=== PATIENT | male | born 1980 | race Caucasian/White ===

== ENCOUNTER 2018-11-28 16:27 | Emergency (ER) | payer MEDICAID ==
--- NOTE | 2018-11-28 16:55 | EDPHY ---
H & P Time Seen by Provider: 11/28/18 16:48 HPI/ROS: CHIEF COMPLAINT: Right hip injury HISTORY OF PRESENT ILLNESS: Fell doing a job offer rail today while snowboarding at 2:00 p.m., pain in the right hip. Difficulty with walking, no other injury. REVIEW OF SYSTEMS: Negative for neck or back pain, negative for abdominal knee or other lower extremity injury. PAST MEDICAL HISTORY: Negative Social history: Nonsmoker General Appearance: Alert and conversant, cooperative. Abdomen soft nontender. Pelvis stable to compression. Right hip pain on rotation and axial loading. Normal right thigh and knee, normal leg ankle and foot. Normal motor sensory and vascular in the right foot Emergency Department course/MDM: Right hip x-ray ordered. Patient initially declined pain medication. 1708: X-ray negative, higher suspicion with clinical exam, CT discussed and consented. 1838: CT shows hematoma, but no fracture. Results discussed with the patient. Is comfortable with discharge. He asked me if [facility] [place] [facility] and I told him it was likely but no guarantees. Smoking Status: Former smoker Constitutional: Initial Vital Signs Temperature (C) 36.7 C 11/28/18 16:34 Heart Rate 65 11/28/18 16:34 Respiratory Rate 16 11/28/18 16:34 Blood Pressure 117/74 11/28/18 16:34 O2 Sat (%) 95 11/28/18 16:34 O2 Delivery Mode Room Air Allergies/Adverse Reactions: No Known Allergies Allergy (Unverified 11/28/18 16:34) Home Medications: Medication Instructions Recorded oxyCODONE/APAP 5/325 [Percocet] 1 tab PO Q4-6PRN PRN #11 tab 11/28/18 Medical Decision Making - Diagnostics Imaging Results: Imaging Impressions Hip X-Ray 11/28/18 16:53 Impression: No acute abnormality seen about the pelvis with attention right hip. Extremity CT 11/28/18 17:08 Impression: 1. No evidence of fracture about the pelvis. 2. Intramuscular hematoma inferior right iliopsoas complex anterior to the right hip. Findings discussed with Travis Montes M.D. at 18:37 hour, 11/28/2018. Imaging: Discussed imaging studies w/ manager call center Radiologist - Data Points Medications Given: Discontinued Medications Oxycodone/Acetaminophen (Percocet 5/325) 1 tab PO EDNOW ONE Stop: 11/28/18 18:31 Last Admin: 11/28/18 18:32 Dose: 1 tab Departure - Departure Disposition: Home, Routine, Self-Care Clinical Impression: Contusion of right hip, initial encounter Condition: Good Instructions: Contusion in Adults (ED) Referrals: ANICETO RIVERA [Other] - As per Instructions Prescriptions: oxyCODONE/APAP 5/325 [Percocet] 1 tab PO Q4-6PRN PRN #11 tab PRN Reason: Pain
[2018-11-28] MEDS ORDERED: OXYCODONE/APAP 5/325 TAB PO ONE (18:30)
[2018-11-28 18:48] VITALS: BP 115/78
== END 2018-11-28 18:48 | disposition home or self-care (01) ==
DX: S70.01XA Contusion of right hip, initial encounter (principal); V00.311A Fall from snowboard, initial encounter; Y93.23 Activity, snow (alpine) (downhill) skiing, snowboarding, sledding, tobogganing and snow tubing; Y92.828 Other wilderness area as the place of occurrence of the external cause